=== PATIENT | female | born 1955 | race Caucasian/White ===

== ENCOUNTER 2025-01-31 07:54 | Outpatient (AMB) | payer MEDICARE, SELFPAY ==
--- OUTSIDE RECORDS SUMMARY | 2025-01-31 08:01 | XMS_ITS | Clinical Summary ---
Author Organization [address] [facility] Address [address] [place] [address] Phone Care Team Providers Care Ore Dressing Engineer Name Role Phone La Arreaga MD Primary Care Provider [phone] Allergies Active Allergy Reactions Criticality Noted Date Comments Aspirin 06/22/2022 Ibuprofen 06/22/2022 Levonorgestrel-Ethinyl Estrad 2021 Naproxen 06/22/2022 Medications aloe vera 5,000 mg capsule Take by mouth. Active vit B complx/folic acid/lysine (B COMPLEX VITAMINS PO) Take 5,000 Int'l Units by mouth. Active cetirizine (ZyrTEC) 10 mg tablet Take 1 tablet (10 mg total) by mouth 1 (one) time each day. Active ipratropium-albu teroL (Combivent Respimat) 20-100 mcg/actuation inhaler Inhale 1 Puff into the lungs 4 times daily for 30 days. 12/07/2023 Active levothyroxine (SYNTHROID, LEVOTHROID) 75 mcg tablet Take 1 tablet (75 mcg total) by mouth 1 (one) time each day. Active CHOLECALCIFEROL, VITAMIN D3, ORAL Take by mouth. Active ipratropium-albu teroL (Combivent Respimat) 20-100 mcg/actuation inhalerIndicatio ns:COPD with asthma (CMS/HCC V24, CMS/HCC V28) Inhale 1 puff by mouth 4 (four) times a day. 3 each 3 01/14/2025 Active Active Problems Problem Noted Date Diagnosed Date Anterolisthesis 06/14/2023 COPD (chronic obstructive pu lmonary disease) ([facility] V24, [facility] V28) 06/14/2023 Erythema migrans (Lyme disease) 06/14/2023 Hypothyroidism 06/14/2023 Lumbago 06/14/2023 Lumbar spondylosis 06/14/2023 Osteopenia 06/14/2023 Vitamin B12 deficiency 06/14/2023 Encounters Date Type Department Care Team Description 12/04/2024 11:30 AM EDT Office Visit Pulmonolgy - [address] [place] [address] Xochilt Duarte MD COPD with asthma ([facility] V24, [facility] V28) (Primary Dx); Bronchiectasis without complication ([facility] V24, [facility] V28); Ex-smoker; Lung nodules from Last 3 Months Social History Tobacco Use Types Packs/Day Years Used Date Smoking Tobacco: Former Cigarettes Q uit: 08/16/2010 Smokeless Tobacco: Never Alcohol Use Standard Drinks/Week Comments Not Currently 0 (1 standard drink = 0.6 oz pur e alcohol) Comments Unknown Sex and Gender Information Value Date Recorded Sex Assigned at Female 09/25/2024 12:26 PM EST Legal Sex Female 5:21 AM EST Gender Identity Female 09/25/2024 12:26 PM EST Sexual Orientation Not on file Obstetrics History Last Filed Vital Signs Vital Sign Reading Time Taken Comments Blood Pressure 122/69 12/04/2024 11:35 AM EDT Pulse 61 12/04/2024 11:35 AM EDT Temperature 35.7 C (96.3 F) 12/04/2024 11:35 AM EDT Respiratory Rate 16 12/04/2024 11:35 AM EDT Oxygen Saturation 96% 12/04/2024 11:35 AM EDT Inhaled Oxygen Concentration - - Weight 75.4 kg (166 lb 3.2 oz) 12/04/2024 11:35 AM EDT Height 162.6 cm (5' 4 ) 12/04/2024 11:35 AM EDT Body Mass Index 28.53 12/04/2024 11:35 AM EDT Plan of Treatment Upcoming Encounters Date Type Department Care Team (Late st Contact Info) Description 06/18/2025 9:45 AM EST Office Visit Pulmonolgy - [place] [facility] [address] [place] [id number] Xochilt Duarte MD [address] [id number] Health Maintenance Due Date Last Done Comments Breast Cancer Screening 1955 Colorectal Cancer Screening: Colonoscopy 07/19/2022 Depression Screening 07/19/2022 Falls Risk Assessment 07/19/2022 Hepatitis C Screening 07/19/2022 Medicare Annual Wellness Visit 07/19/2022 Osteoporosis Screening (Bone Density Screening) 07/19/2022 Social Influencers of Health Screening 07/19/2022 DTaP,Tdap,and Td Vaccines (2 - Td or Tdap) 02/28/2024 02/27/2014 COVID-19 Vaccine ( season) 2024 05/22/2024, 05/24/2023, 01/05/2022, Additional history exists Zoster Vaccines Completed 08/13/2020, 06/11/2020 Pneumococcal Vaccine: 50+ Years Completed 06/24/2021, 06/11/2020 RSV Immunization Adult Patients Completed 04/30/2023 Influenza Vaccine Completed 05/22/2024, , 06/29/2022, Additional history exists HIB Vaccines Aged Out No longer eligi ble based on patient's age to complete this topic HPV Vaccines Aged Out No longer eligi ble based on patient's age to complete this topic Hepatitis A Vaccines Aged Out No long er eligible based on patient's age to complete this topic Hepatitis B Vaccines Aged Out No long er eligible based on patient's age to complete this topic IPV Vaccines Aged Out No longer eligi ble based on patient's age to complete this topic MMR Vaccines Aged Out No longer eligi ble based on patient's age to complete this topic Meningococcal ACWY Vaccine Aged Out N o longer eligible based on patient's age to complete this topic Meningococcal B Vaccine Aged Out No l onger eligible based on patient's age to complete this topic RSV Immunization Patients Under 20 months Aged Out No longer eligible based on patient's age to complete this topic Varicella Vaccines Aged Out No longer eligible based on patient's age to complete this topic Insurance MEDICARE [facility] Care Teams Ore Dressing Engineer Relationship Specialty Start Date End Date La Arreaga MD [address] [facility] [place] [address] PCP - General 04/02/22
--- NOTE | 2025-01-31 08:08 | MHC.PC.OV ---
Vital Signs 01/31/25 08:10 Height 5 ft 4 in Weight 165 lb BMI 28.3 BP 106/74 Blood Pressure Location Lt brachial Position Sitting Respiration 18 Pulse 77 Pulse Source Pulse Oximeter Temp 97.5 F Temp Source Oral Pulse Oximetry (%) 95 Oxygen Delivery Method Room Air Intake Visit Reasons: Ear Problems Intake Note: Pt is here today for New pt visit. Allergies aspirin Allergy (Verified 01/31/25 08:15) Unknown ibuprofen Allergy (Verified 01/31/25 08:15) Unknown Milk Containing Products (Dairy) Allergy (Verified 01/31/25 08:16) Sneezing naproxen Allergy (Verified 01/31/25 08:15) yellow eyes skin turning blue Medication List - Last Reconciled 01/31/25 by Jacqui Mireles MD albuterol sulfate 90 mcg/actuation (Ventolin HFA) 2 puffs inhalation Q6H PRN aloe vera PO Bacillus coagulans (Probiotic (B. coagulans)) PO cetirizine (Zyrtec) 10 mg PO DAILY PRN cholecalciferol (vitamin D3) 25 mcg PO DAILY ipratropium-albuterol 20-100 mcg/actuation (Combivent Respimat) 1 puff inhalation TID levothyroxine (Levoxyl) 75 mcg PO DAILY montelukast 10 mg PO DAILY Tobacco use date assessed: 01/31/25 Fall risk assessment: No Falls in past year Last assessed Fall Risk: 01/31/25 Dental Screening Dental Screen Date: 01/31/25 Did you have a dental visit in the last 12 months?: Yes Did you have a dental problem in the last 6 months where you did not have access to dental care?: No Was dental information given to patient?: Patient has dentist HPI Ear Problems HPI Details Patient presents for new patient visit transfer from [facility]. Past medical history includes hypothyroidism controlled on levothyroxine COPD/asthma with seasonal allergies controlled on Combivent and montelukast. Patient is established with roof fitter at [facility] Medical History (Updated 01/31/25 @ 16:06 by Jacqui Mireles MD) Hypothyroidism Hyperglycemia Hyperlipidemia Varicose veins of left calf COPD (chronic obstructive pulmonary disease) Carotid artery aneurysm Surgical History (Updated 01/31/25 @ 10:21 by Jacqui Mireles MD) History of colonoscopy Hx of cataract surgery Family History (Updated 01/31/25 @ 08:37 by Jacqui Mireles MD) Father Hypertension Heart problem, Onset Age: 50 Mother Hypertension Diabetes Social History (Updated 01/31/25 @ 08:38 by Jacqui Mireles MD) Household Members Other:: , 3 children, artist Housing: House Patient Tobacco Use Status: Former Tobacco user (14-15 years ago) Tobacco use type: Cigarette e-Cigarette/Vaping Use: Never Used service: No Current occupational status: retired Cognitive needs: No Hearing needs: No Vision needs: No Questionnaire PHQ-9 Over the last 2 weeks, how often have you been bothered by any of the following problems? 1. Little interest or pleasure in doing things: not at all 2. Feeling down, depressed, or hopeless: not at all 3. Trouble falling or staying asleep, or sleeping too much: not at all 4. Feeling tired or having little energy: nearly every day 5. Poor appetite or overeating: not at all 6. Feeling bad about yourself - or that you are a failure or have let yourself or your family down: not at all 7. Trouble concentrating on things, such as reading the newspaper or watching television: not at all 8. Moving or speaking so slowly that other people could have noticed. Or the opposite - being so fidgety or restless that you have been moving around a lot more than usual: not at all 9. Thoughts that you would be better off or of hurting yourself in some way: not at all Total score: 3 Depression Screening Interpretation: Negative Depression Screening Done: Yes 03458 - PHQ-9 Billing: Yes Source: Developed by Drs. Marcelino Loyd, Sasha Rojas, Mukul Cordon and colleagues, with an educational mary from [employer]. Thrive Questionnaire Date Thrive assessed: 01/31/25 I am a: Patient What is your living situation today?: I have a steady place to live Within the past 12 months, did the food you bought not last and you didn't have the money to get more?: Often true Within the past 12 months, did you worry whether your food would run out before you got money to buy more?: I choose not to answer this question Do you have trouble paying for medicines?: I choose not to answer this question Do you have trouble getting transportation to medical appointments?: I choose not to answer this question Do you have trouble paying your heating and electricity bill?: I choose not to answer this question Do you have trouble taking care of your child, family member or friend?: No Do you have trouble with day-to-day activities such as bathing, preparing meals, shopping, managing finances, etc.?: No Are you currently unemployed and looking for a job?: No Are you interested in more education?: No Please select the resources that you would like help with: None THRIVE Score: 1 AUDIT C Alcohol Use Questionnaire (AUDIT-C) 1. How often do you have a drink containing alcohol?: Never 3. How often do you have six or more drinks on one occasion?: Never Total Score: 0 SILVESTRE-7 AMB Questionnaire SILVESTRE-7 Date SILVESTRE - 7 assessed: 01/31/25 Feeling nervous, anxious, or on edge: 0 = Not at all Not being able to stop or control worryin = Not at all Worrying too much about different things: 0 = Not at all Trouble relaxin = Not at all Being so restless that it is hard to sit still: 0 = Not at all Becoming easily annoyed or irritable: 0 = Not at all Feeling afraid as if something awful might happen: 0 = Not at all Total SILVESTRE-7 score (0-4 normal; 5-9 mild; 10-14 moderate; 15-21 severe): 0 Source: Developed by Drs. Marcelino Loyd, Sasha Rojas, Mukul Cordon and colleagues, with an educational mary from [employer]. SILVESTRE-7 Assessment Billing SILVESTRE-7 Assessment Tool: SILVESTRE-7 Assessment 23706 Review of Systems Const All systems reviewed & are unremarkable except as noted in HPI and below Eyes Reports no additional complaints ENT Reports no additional complaints Card Reports no additional complaints Resp Reports no additional complaints GI Reports no additional complaints Reports no additional complaints Physical exam (Primary Care) Vital Signs: Last Vital Signs Temp 97.5 F 01/31/25 08:10 Pulse 77 01/31/25 08:10 Resp 18 01/31/25 08:10 BP 106/74 01/31/25 08:10 Pulse Ox 95 01/31/25 08:10 Oxygen Delivery Method Room Air 01/31/25 08:10 BMI result Body Mass Index 28.3 Tobacco/Smoking Status: Tobacco use Status Tobacco use date assessed 01/31/25 01/31/25 08:24 Patient Tobacco Use Status Former Tobacco user (14-15 01/31/25 08:38 years ago) Tobacco use type Cigarette 01/31/25 08:38 e-Cigarette/Vaping Use Never Used 01/31/25 08:38 PHQ-9: PHQ-9 Score PHQ-9: Total score 3 01/31/25 08:39 Depression Screening Interpretation: Negative Thrive Assessment: Date of Thrive Assessment Date Thrive assessed 01/31/25 01/31/25 08:09 Const General: no acute distress HENMT Head: Yes normal to inspection Ears: hearing grossly normal bilaterally Face and sinus: Yes normal facial exam Mouth: Normal oral and palatal mucosa present Eyes General: appearance normal, both eyes and all related structures Neck Neck: Yes no lymphadenopathy and Yes supple Resp Effort & Inspection: normal respiratory effort Auscultation: clear to auscultation bilaterally Cardio Rhythm: regular rhythm Heart sounds: S1 normal heart sound present and S2 normal heart sound present GI Inspection: Yes normal to inspection Palpation (GI): Soft to palpation Percussion: Yes normal to percussion Auscultation: normal bowel sounds Coding Level of Care Code New Pt Level 4 (90133) Complex EM visit Add On G2211 Diagnoses Carotid artery aneurysm I72.0 Hyperlipidemia E78.5 History of colonoscopy Z98.890 Hypothyroidism E03.9 Varicose veins of left calf I83.92 Additional Codes SILVESTRE-7 Assessment Billing - SILVESTRE-7 Assessment Tool: SILVESTRE-7 Assessment 32280 ([id number]) PHQ-9 - 07652 - PHQ-9 Billing: Yes ([id number]) Assessment & Plan Assessment & Plan (1) Carotid artery aneurysm: Comment: seen by [facility] and [place] evaluation f/u annually in fall 2024 Code(s): I72.0 - Aneurysm of carotid artery Category: Medical Plan: Patient follows up with the vascular surgeon at [facility] (2) Hyperlipidemia: Code(s): E78.5 - Hyperlipidemia, unspecified Category: Medical Plan: On low-cholesterol diet we will have a fasting lipid profile (3) History of colonoscopy: Comment: 2017? [facility], patient will get a report Code(s): Z98.890 - Other specified postprocedural states Category: Surgical Plan: Patient will be due for colonoscopy next year she will obtain the records from [facility] (4) Hypothyroidism: Code(s): E03.9 - Hypothyroidism, unspecified Category: Medical Plan: Continue levothyroxine check TSH to (5) Varicose veins of left calf: Code(s): I83.92 - Asymptomatic varicose veins of left lower extremity Category: Medical Plan: For painful varicose veins on the left calf, patient will be referred to vascular surgeon Orders: Orders Comprehensive [place]. Panel Fast Today R73.9 - Hyperglycemia, unspecified, Z00.00 - Encounter for general adult medical examination without abnormal findings Hemoglobin A1c Today R73.9 - Hyperglycemia, unspecified, Z00.00 - Encounter for general adult medical examination without abnormal findings Lipid Panel Today R73.9 - Hyperglycemia, unspecified, Z00.00 - Encounter for general adult medical examination without abnormal findings Microalbumin, Random (w Creat) Today R73.9 - Hyperglycemia, unspecified, Z00.00 - Encounter for general adult medical examination without abnormal findings XR sacroiliac joint min 3V Today M53.3 - Sacrococcygeal disorders, not elsewhere classified Complete Blood Count Auto Diff Today R73.9 - Hyperglycemia, unspecified, Z00.00 - Encounter for general adult medical examination without abnormal findings TSH reflex Free T4 Today R73.9 - Hyperglycemia, unspecified, Z00.00 - Encounter for general adult medical examination without abnormal findings Vitamin D 25-OH Total Today E55.9 - Vitamin D deficiency, unspecified, R73.9 - Hyperglycemia, unspecified, Z00.00 - Encounter for general adult medical examination without abnormal findings Referrals Vascular Surgery Referral I83.92 - Asymptomatic varicose veins of left lower extremity Medications: New levothyroxine (Levoxyl) 75 mcg PO DAILY 90 tabs 3RF montelukast 10 mg PO DAILY 90 tabs 3RF ipratropium-albuterol 20-100 mcg/actuation (Combivent Respimat) 1 puff inhalation TID 12 grams 3RF
[2025-01-31 08:10] VITALS: BP 106/74; PULSE 77; RESP 18; TEMP 36.4; O2SAT 95; BMI 28.3
== END 2025-01-31 08:57 | disposition home or self-care (01) ==
LOC: HO.HMCC 07:54
PROVIDERS: PCP Internal Medicine; Visit Provider Internal Medicine
DX: I72.0 Aneurysm of carotid artery (principal); E78.5 Hyperlipidemia, unspecified; Z98.890 Other specified postprocedural states; E03.9 Hypothyroidism, unspecified; I83.92 Asymptomatic varicose veins of left lower extremity

== ENCOUNTER 2025-01-31 07:54 | Outpatient (REF) | payer MEDICARE, SELFPAY ==
[2025-01-31 10:22] LABS: MANUAL DIFF FLAG NO
[2025-01-31 10:23] LABS: Basophils Absolute Auto 0.1 X10*3/uL (0.0-0.2); Basophils Percent Auto 0.8 % (0-2); Eosinophils Absolute Auto 0.1 X10*3/uL (0.0-0.4); Hematocrit 43.2 % (37.0-47.0); Hemoglobin 14.2 g/dl (12.0-16.0); Imm Gran Abs Auto 0.02 X10*3/uL (0.00-0.03); Imm Gran Pct Auto 0.3 % (0.0-0.4); Lymphocytes Absolute Auto 2.3 X10*3/uL (1.2-4.9); Lymphocytes Percent Auto 35.1 % (20-40); Mean Corpuscular HGB Conc 32.9 g/dl (31.0-35.0); Mean Corpuscular Hemoglobin 29.5 pg (27.0-33.0); Mean Corpuscular Volume 89.8 fL (80.0-98.0); Mean Platelet Volume 11.6 fL (9.4-12.3); Monocytes Absolute Auto 0.5 X10*3/uL (0.1-1.2); Neutrophils Absolute Auto 3.5 x10*3/uL (2.0-8.3); Neutrophils Percent Auto 53.8 % (45-73); Platelet Count 210 X10*3/uL (160-400); Red Blood Count 4.81 X10*6/uL (4.20-5.50); White Blood Count 6.5 X10*3/uL (4.8-10.8)
[2025-01-31 10:39] LABS: Estimated Average Glucose 117 mg/dL; Hemoglobin A1C 142.8777 umol/L; Hemoglobin A1c % 5.7 % (<6.0)
[2025-01-31 10:49] LABS: Creatinine Urine 131.11 mg/dL; Microalbum/Creatinine Ratio Ur 5.3 ug/mg cr (<30)
[2025-01-31 10:52] LABS: Alanine Aminotransferase 18 U/L (0-31); Albumin Level 4.5 g/dL (3.5-5.0); Alkaline Phosphatase 98 U/L (39-117); Anion Gap 12 (12-20); Aspartate Amino Transferase 25 U/L (5-31); Bilirubin Total 1.1 mg/dL (0.0-1.0); Blood Urea Nitrogen 17 mg/dL (9-16); Calcium 9.5 mg/dL (8.4-10.2); Carbon Dioxide 25 mmol/L (22-29); Chloride 107 mmol/L (96-108); Cholesterol 217 mg/dL (<200); Estimated Glomerular Filt Rate > 60; Glucose Fasting 87 mg/dL (60-99); HDL Cholesterol 72 mg/dL (>40); LDL Cholesterol Calculated 125 mg/dL (<100); Potassium 4.1 mmol/L (3.3-5.1); Sodium 140 mmol/L (135-145); Total Protein 7.4 g/dL (6.5-8.0); Triglycerides 103 mg/dL (<150)
[2025-01-31 11:04] LABS: TSH reflex Free T4 3.61 uIU/mL (0.32-4.0); Vitamin D 25-OH Total 44.3 ng/mL (>30)
== END 2025-01-31 07:55 | disposition home or self-care (01) ==
LOC: HO.HMGCLDS 07:54
PROVIDERS: PCP Internal Medicine; Visit Provider Internal Medicine
DX: I72.0 Aneurysm of carotid artery (principal); E78.5 Hyperlipidemia, unspecified; E03.9 Hypothyroidism, unspecified; I83.92 Asymptomatic varicose veins of left lower extremity; R73.9 Hyperglycemia, unspecified; Z79.899 Other long term (current) drug therapy; Z13.30 Encounter for screening examination for mental health and behavioral disorders, unspecified; Z13.31 Encounter for screening for depression; Z00.00 Encounter for general adult medical examination without abnormal findings; E55.9 Vitamin D deficiency, unspecified
CPT/HCPCS: 36415; 80053; 80061; 82043; 82306; 82570; 83036; 84443; 85025; 96127; 99202

== ENCOUNTER 2025-02-06 10:32 | Outpatient (AMB) | payer MEDICARE, SELFPAY ==
[2025-02-06 10:40] VITALS: BMI 28.3
--- NOTE | 2025-02-06 10:40 | MHC.OFFVIS ---
Vital Signs 02/06/25 10:40 Height 5 ft 4 in Weight 165 lb BMI 28.3 Intake Visit Reasons: MANAGER OFFICE/PCP referral for VV of LLE Intake Note: MANAGER OFFICE Left LE VV w/ pain worse with ambulation. Has had for many years but is getting worse. Data Reporting Analyst Required: No Accompanied by: Self / Same As Patient Allergies aspirin Allergy (Verified 02/06/25 10:42) Unknown ibuprofen Allergy (Verified 02/06/25 10:42) Unknown Milk Containing Products (Dairy) Allergy (Verified 02/06/25 10:42) Sneezing naproxen Allergy (Verified 02/06/25 10:42) yellow eyes skin turning blue HPI HPI MANAGER OFFICE/PCP referral for VV of LLE: Details: Samreen, a very pleasant 69yo female patient, is presenting today on referral from her PCP for concerns of VV with pain and inflammation. Complaints include pain over varicosities, slight swelling, and fatigue of the lower extremities. It has been affecting their daily activities including walking, standing, and physical activity. It is noted more so in the left leg. She states she has had the varicosities behind her left knee for years now; however, most recently it has been more painful/achy and causing increased pain on walks. She is not a diabetic. She has a remote smoking hx, quitting >15y ago. There is no hx of blood clots or family hx of clotting disorders. She is retired now but did work on her feet for many years; she did wear compression socks while working. Patient denies any previous venous surgery or injections. Patient denies any history of DVT/ PE. Patient denies any history of phlebitis. Trial of compression includes - compression socks in the past. Elevation is questionable if it helps They now present for vascular evaluation regarding their varicose veins. [facility] Medical History Hypothyroidism Hyperglycemia Hyperlipidemia Varicose veins of left calf COPD (chronic obstructive pulmonary disease) Carotid artery aneurysm Surgical History History of colonoscopy Hx of cataract surgery Family History Father Hypertension Heart problem, Onset Age: 50 Mother Hypertension Diabetes Social History Household Members Other:: , 3 children, artist Housing: House Patient Tobacco Use Status: Former Tobacco user (14-15 years ago) Tobacco use type: Cigarette e-Cigarette/Vaping Use: Never Used service: No Current occupational status: retired Cognitive needs: No Hearing needs: No Vision needs: No Review of Systems Const Reports as per HPI and Denies weakness ENT Reports Normal hearing present and Denies dizziness Card Reports as per HPI, Denies chest pain, Denies chest pain at rest, Denies chest pain with activity, Denies dyspnea and Denies dyspnea on exertion Resp Reports as per HPI, Denies cough, Denies dyspnea and Denies dyspnea on exertion GI Reports as per HPI, Denies abdominal pain, Denies nausea and Denies vomiting Musc Denies numbness Skin/Breast Reports as per HPI, Denies erythema and Denies wounds Neuro Reports Normal hearing present, Denies dizziness, Denies numbness, Denies Sensory deficit (Neuro) and Denies weakness Psych Reports no additional complaints Endo Reports no additional complaints Physical Exam Vital Signs: BMI result Body Mass Index 28.3 Const General: healthy appearing and no acute distress Orientation/consciousness: patient oriented x3 HEENT Head: Yes normal to inspection Ears: hearing grossly normal bilaterally Mouth: Normal oral and palatal mucosa present Resp Effort & Inspection: normal respiratory effort and able to speak in complete sentences Auscultation: clear to auscultation bilaterally Cardio Jugular venous distension: no JVD Rate: regular rate Rhythm: regular rhythm Heart sounds: S1 normal heart sound present and S2 normal heart sound present Bruits: no abdominal aortic bruits, no carotid bruits, no femoral bruits and no renal bruits Peripheral pulses: Peripheral pulses 2+ throughout GI Inspection: Yes normal to inspection Palpation (GI): No Abdominal aortic bruit present Skin General skin exam: no rashes or lesions noted Wounds: no wounds Hair: normal Neuro General: patient oriented x3 Cranial nerves: Yes Normal hearing present Cognition (Neuro): normal cognition Gait exam (Neuro): Normal gait present Motor exam (neuro): 5/5 motor strength present throughout Sensory Exam: No Sensory deficit (Neuro) Extrem Other: Left lower extremity: trace peripheral edema noted. Significant large rope-like varicosity, >5cm noted from the posterior mid-thigh down the back of the knee, ending at the posterior mid-calf. Not tender to palpation. CEAP: C - 3 E - primary A - superficial P - reflux General: Yes normal to inspection, Yes full ROM, Yes capillary refill normal and Yes normal gait Assessment & Plan Assessment & Plan (1) Varicose veins of left calf: Code(s): I83.92 - Asymptomatic varicose veins of left lower extremity Category: Medical Plan: Samreen is presenting today on referral from her PCP for concerns of VV with pain and inflammation. In short, the patient has evidence of venous insufficiency. I have discussed the pathophysiology with the patient. In addition I have provided informational material regarding venous disease to the patient. We have discussed conservative measures including compression, elevation, and exercise. I have also provided a handout regarding appropriate use of compression stockings and where to purchase good compression stockings as well. I have taken the liberty of ordering venous insufficiency testing with the patient. They will follow up with me after testing. The patient had an opportunity to ask questions regarding the treatment plan. All questions were answered. Imaging studies, laboratory studies and physical exam results were discussed and reviewed in detail. No major barriers to understanding were identified. The patient expressed understanding and agreement with the above treatment plan. The patient is aware they should contact our office by phone for worsening of the current condition or the appearance of new symptoms. Thank you for allowing me to participate in the vascular care of this patient. If you have any questions or concerns regarding the treatment for the above condition please do not hesitate to contact me. The office telephone contact is [phone]. This note is constructed using voice recognition software. While every effort has been made to ensure accuracy, official court interpreter errors may have been included. Thank you for allowing me to participate in the care of your patient. Yours sincerely, JAYSON Cross Orders: Orders US venous duplex LE BI 1 Week I83.92 - Asymptomatic varicose veins of left lower extremity Coding Level of Care Code New Pt Level 4 (56706) Diagnoses Varicose veins of left calf I83.92
--- OUTSIDE RECORDS SUMMARY | 2025-02-06 11:49 | XMS_ITS | Clinical Summary ---
Author Organization 175 [facility] Address [address] [place] [address] Phone Care Team Providers Care Hyperion Developer Name Role Phone La Arreaga MD Primary Care Provider [phone] Allergies Active Allergy Reactions Criticality Noted Date [...] 06/14/2023 COPD (chronic obstructive pu lmonary disease) ([facility] V24, [facility] V28) 06/14/2023 Erythema migrans (Lyme disease) 06/14/2023 Hypothyroidism 06/14/2023 Lumbago 06/14/2023 Lumbar spondylosis 06/14/2023 Osteopenia 06/14/2023 Vitamin B12 deficiency 06/14/2023 Encounters Date Type Department Care Team Description 12/04/2024 11:30 AM EDT Office Visit Pulmonolgy - [address] [place] [address] Xochilt Duarte MD COPD with asthma ([facility] V24, [facility] V28) (Primary Dx); Bronchiectasis without complication ([facility] V24, [facility] V28); Ex-smoker; Lung nodules from Last 3 [...] 9:45 AM EST Office Visit Pulmonolgy - [place] 175 [facility] [address] [place] [phone] Xochilt Duarte MD [address] [address] Health Maintenance Due Date Last Done Comments [...] age to complete this topic Insurance MEDICARE [facility] Care Teams Hyperion Developer Relationship Specialty Start Date End Date La Arreaga MD [address] [facility], [address] [place] [address] PCP - General 04/02/22
== END 2025-02-06 10:59 | disposition home or self-care (01) ==
LOC: HO.HVS 10:33
PROVIDERS: PCP Internal Medicine; Visit Provider Physician Assistant Surgical
DX: I83.92 Asymptomatic varicose veins of left lower extremity (principal)
CPT/HCPCS: 99204

== ENCOUNTER → 2025-02-06 10:32 | Outpatient (BNVA) | payer MEDICARE, SELFPAY | PROVIDERS: PCP Internal Medicine; Visit Provider Physician Assistant Surgical | DX: I83.92 Asymptomatic varicose veins of left lower extremity (principal) | CPT/HCPCS: 99202 ==

== ENCOUNTER 2025-03-05 10:20 | Outpatient (REF) | payer MEDICARE, SELFPAY ==
--- NOTE | ~2025-03-05 | US_ITS ---
EXAMINATION: US LOWER EXTREMITY VENOUS (REFLUX EXAM), BILATERAL CLINICAL INFORMATION: I83.92 - Asymptomatic varicose veins of left lower extremity COMPARISON: None. TECHNIQUE: Color flow triplex imaging and compression Doppler was performed to evaluate both the deep and the superficial systems bilaterally. To evaluate the superficial system, the examination was performed in the upright position. Color-flow Doppler ultrasound and compression ultrasound were utilized. In addition, maneuvers were utilized to demonstrate reflux. FINDINGS: 1. DEEP VENOUS ULTRASOUND OF THE RIGHT LOWER EXTREMITY: Common Femoral Vein: Compressible, normal respiratory variation and augmented flow. Femoral Vein: Compressible, normal color flow and augmentation. Popliteal Vein: Compressible, normal augmentation. Deep Reflux: There is no evidence of reflux in the deep system in either the common femoral vein, superficial femoral or the popliteal vein. 2. SUPERFICIAL ULTRASOUND WITH DOPPLER OF RIGHT LOWER EXTREMITY: GREAT SAPHENOUS VEIN: Saphenofemoral Junction: 0.5 cm; Reflux: 0 ms Proximal Thigh: 0.3 cm; Reflux: 0 ms Mid Thigh: 0.4 cm; Reflux: 0 ms Distal Thigh: 0.3 cm; Reflux: 0 ms At Knee: 0.3 cm; Reflux: 0 ms Below Knee/Proximal Calf: 0.1 cm; Reflux: 0 ms Mid Calf: 0.2 cm; Reflux: 0 ms Ankle/Distal Calf: 0.3 cm; Reflux: 0 ms Lateral accessory GREAT SAPHENOUS VEIN: Saphenofemoral Junction: 0.3 cm; Reflux: 0 ms Mid Thigh: 0.2 cm; Reflux: 0 ms SMALL SAPHENOUS VEIN: Drainage: Thigh extension Saphenopopliteal Junction: 0.2 cm; Reflux: 0 ms Mid calf: 0.2 cm; Reflux: 0 ms Distal: 0.2 cm; Reflux: 0 ms VEIN OF GIACOMINI: Size: 0.2 cm Reflux: 0 ms PERFORATORS: Location: Greater saphenous vein, proximal calf Size: 0.2 cm Reflux: 0 ms VARICOSITIES > 3mm: None Imaged 3. DEEP VENOUS ULTRASOUND OF THE LEFT LOWER EXTREMITY: Anechoic fluid in the popliteal fossa measuring 5 x 1.6 x 2 cm likely represents a Burk's cyst. Common Femoral Vein: Compressible, normal respiratory variation and augmented flow. Femoral Vein: Compressible, normal color flow and augmentation. Popliteal Vein: Compressible, normal augmentation. Deep Reflux: There is no evidence of reflux in the deep system in either the common femoral vein, superficial femoral or the popliteal vein. 4. SUPERFICIAL ULTRASOUND WITH DOPPLER OF LEFT LOWER EXTREMITY: GREAT SAPHENOUS VEIN: Saphenofemoral Junction: 0.6 cm; Reflux: 0 ms Proximal Thigh: 0.5 cm; Reflux: 0 ms Mid Thigh: 0.3 cm; Reflux: 0 ms Distal Thigh: 0.4 cm; Reflux: 0 ms At Knee: 0.4 cm; Reflux: 0 ms Below Knee/Proximl calf: 0.2 cm; Reflux: 0 ms Mid Calf: 0.2 cm; Reflux: 0 ms Distal Calf/Ankle: 0.2 cm; Reflux: 0 ms Lateral accessory GREAT SAPHENOUS VEIN: Saphenofemoral Junction: 0.2 cm; Reflux: 0 ms Mid Thigh: 0.2 cm; Reflux: 0 ms SMALL SAPHENOUS VEIN: Drainage: Popliteal vein Saphenopopliteal Junction: 2 cm; Reflux: 0 ms Mid calf: 0.2 cm; Reflux: 0 ms Distal calf: 0.1 cm; Reflux: 0 ms VEIN OF GIACOMINI: Size: 0.2 Reflux: 0 PERFORATORS: Location: Greater saphenous vein, distal thigh Size: 0.3 cm Reflux: 0 ms Location: Greater saphenous vein, proximal calf Size: 0.2 cm Reflux: 0 ms Location: Greater saphenous vein to a small varicose vein, mid calf Size: 0.2 cm Reflux: 0 ms VARICOSITIES > 3mm: None Imaged US/US venous duplex LE BI IMPRESSION: Right: No venous reflux is demonstrated. Left: No venous reflux is demonstrated. Small to midsized Burk's cyst Electronically signed by: Jaya Dukes MD 03/05/2025 01:17 PM EDT
--- OUTSIDE RECORDS SUMMARY | 2025-03-05 11:18 | XMS_ITS | Patient Health Record ---
Author Organization [facility] Address [address] [facility] [address] [place] [id number] Care Team Providers Care Transformer Assembler Name Role Phone Sandro Graves Primary Care Provider UnavailMiguel Angel Gagnon Jr Unavailable Reason For Referral No Information Plan Of Treatment No Information Insurance Providers Payer Name Payer Address Payer Phone Subscriber Number Group Number Insured Name Patient Relationship to Insured Coverage Start Date Coverage End Date [facility] PROF[employer]AL CLAIM[facility] [address] [place] [address] [id number] BONNY LANGE Self - patient is the insured
--- OUTSIDE RECORDS SUMMARY | 2025-03-05 11:18 | XMS_ITS | Data Portability ---
Author Organization [facility], CHANO Kiko Address [address] [place] [address] Assessment Encounter Date Assessment Date Assessment LastModified by Organization Details LastModified Time 01/09/2025 01/09/2025 ICD-10: Left valgus fourth crossover toe, fourth metatarsalgia, chronic fifth PIP lateral dislocation CHIEF COMPLAINT: Left foot pain HISTORY OF PRESENT ILLNESS: Samreen is a very pleasant 69-year-old woman here today with an adult male who is seen as a new patient with regard to chronic left forefoot pain. She suffered a left fifth toe lateral PIP dislocation in March 2024 and was treated with esdras taping. She later had an MRI to evaluate her carotid arteries and an aneurysm. During the MRI, unbeknownst to the radiology seen, she had a metal bar between her third and fourth toes that were helping to hold her toe straight and this aggravated her left forefoot during the MRI. She now has pain about the left fourth MTP joint and has noted valgus drift of the fourth toe. She has tried supportive shoes and inserts. She is here today to discuss surgical treatment. She is also having some pain about her left knee. Past family, medical, social history and review of systems has been reviewed, updated and is located in the patient s chart. She is a nonsmoker. She does not work. PHYSICAL EXAM: General: healthy appearing, in no acute distress Psych: alert and oriented x3, normal mood Skin: intact without ulceration or lesion, normal turgor Lungs: respirations unlabored Cardiac: heart rate regular, normal peripheral pulses Musculoskeletal: On standing exam, there is valgus deviation of her left fourth toe at the MTP joint as well as deformity about the left fifth PIP joint. Skin is intact. She is tender about the left fourth MTP and left fifth PIP joints. She is distally neurovascularly intact. X-RAYS: Previous x-ray images through [facility] from March 2024 independent reviewed, demonstrating valgus deviation about the left fourth MTP joint and left lateral fifth PIP dislocation. IMPRESSION: Left valgus fourth crossover toe, fourth metatarsalgia, chronic fifth PIP lateral dislocation PLAN: I discussed these findings with Samreen. She has been struggling since her injury in March and this seems to have been exacerbated by her MRI. We agree to proceed with surgery in the fall, consisting of left fourth MTP angular correction/pinning , fourth Tory osteotomy, fifth PIP arthrodesis. She will be heel weightbearing in a postop shoe following surgery. Her K wires will remain in place for 5-6 weeks. All questions were answered. Risks include, but are not limited to, wound healing problems, deep infection, nerve/vessel injury, nonunion, malunion, symptomatic hardware, persistent pain, need for further surgery. The expected postoperative course was outlined in detail. The patient understands the nature and magnitude of this surgery and wishes to proceed. All questions were answered. [email or web address] Not available 01/09/2025 15:04:19 Plan of Treatment Reminders Order Date Submit Date Provider Last Modified By Organization Details Last Modified Time Details Appointments SURGERY @ [facility] 2024 08:45A M Jim Mcdonald MD Not available Not available Not available POST OP 15 2024 01:30P M Carmen Schneider PA-C Not available Not available Not available POST OP 15 2024 03:30P M Jim Mcdonald MD Not available Not available Not available Lab None recorded . Referral None recorded . Procedures None recorded . Surgeries orthopae dic surgery (SURG) 2024 025 timmy [address], [address], [facility], [place], [address], 03/05/2025 10:20:53 Imaging None recorded . Medication Orders None recorded . Patient TargetsNo targets recorded. Patient InstructionsNo instructions recorded. Reason for Referral None Reported. Problems Name Problem SNOMED Code Status Onset Date Resolution Date Notes Provider Name and Address Organization Details Recorded Time Overriding toes [id number] Active 025 Jim Mcdonald MD [address], [place], [address] [place] [address] - [facility] 15:04:36 Problem Notes None recorded. Medical Equipment None Reported. Medications Name Sig Start Date Stop Date Status Note LastModified by Organization Details LastModified Time ofloxacin 0.3 % eye drops INSTILL 1 DROP IN RIGHT EYE FOUR TIMES A DAY TO BEGIN 6 HOURS AFTER SURGERY AND CONTINUE FOR 7 DAYS active Not Available Not Available No t Available meclizine 12.5 mg tablet TAKE 1 TABLET BY MOUTH THREE TIMES A DAY active Not Available Not Available No t Available levothyroxine 75 mcg tablet TAKE 1 TABLET BY MOUTH EVERY DAY active Not Available Not Available No t Available ketorolac 0.5 % eye drops INSTILL 1 DROP IN RIGHT EYE FOUR TIMES A DAY TO BEGIN 6 HOURS AFTER SURGERY AND CONTINUE UNTIL EMPTY active Not Available Not Available No t Available prednisolone acetate 1 % eye drops,suspensi on INSTILL 1 DROP IN RIGHT EYE FOUR TIMES A DAY 6 HOURS AFTER SURGERY UNTIL FINISHED active Not Available Not Available No t Available omeprazole 20 mg capsule,delaye d release TAKE 1 CAPSULE BY MOUTH EVERY DAY active Not Available Not Available No t Available montelukast 10 mg tablet TAKE 1 TABLET BY MOUTH EVERY EVENING active Not Available Not Available No t Available albuterol sulfate HFA 90 mcg/actuation aerosol inhaler INHALE 2 PUFFS EVERY 6 HOURS NEEDED FOR WHEEZING active Not Available Not Available No t Available Combivent Respimat 20 mcg-100 mcg/actuation solution for inhalation INHALE 1 PUFF INTO THE LUNGS 4 TIMES DAILY. 3 INHALERS AND 3 REFILLS active Not Available Not Available No t Available Vitals None Recorded Social History None recorded. Functional Status None recorded. Mental Status None recorded. Family History Nothing Reported. Medical History No medical history recorded. Gynecological HistoryNo gynecological history recorded. Obstetrics History GPAL:G 0 P 0 0 0 0 Past Encounters Encounter ID Performer Location Encounter Start Date Encounter Closed Date Diagnosis/Indication Diagnosis SNOMED-CT Code Diagnosis ICD10 Code Diagnosis Note [id number] MD [facility] [place] [address] [place] [address] 01/09/2025 14:35:03 01/16/2025 13:15:21 Hammer toe 334972125 M20.42 Metatarsal eddy of left foot 8522737413 83623 M77.42 Overriding toes 86907567 3 M20.5X2 Health Concerns Section Related Observation LastModified by Organization Detai ls LastModified Time None Recorded Concern Status LastModified by Organization Details LastModified Time None Recorded Advance Directives Directive None Recorded Payers Insurance Date Sequence Insurance Name Policy Number Policy Hopson Covered Member ID Hopson Member ID Guarantor Name 01/16/2025 2 [place] [id number] Samreen Ruiz [id number] Samreen Ruiz 01/19/2025 [employer] - SPECIALITY CLAIMS (MEDICARE DME REGION A) Samreen Ruiz [id number] Samreen Ruiz 01/09/2025 1 [place] Samreen Ruiz [id number] Samreen Ruiz OBGyn Episode No OBEpisode recorded.
--- OUTSIDE RECORDS SUMMARY | 2025-03-05 11:18 | XMS_ITS | Clinical Summary ---
Author Organization [facility] Address [address] [place] [address] Care Team Providers Care Affirmative Action Specialist Name Role Phone La Arreaga Primary Care Provider [phone] Allergies Active Allergy Reactions Criticality Noted Date Comments Ibuprofen Other (see comments) 04/12/2024 unknown Naproxen Jaundice High 04/12/2024 Medications levothyroxine (SYNTHROID, LEVOTHROID) 75 mcg tablet Take 75 mcg by mouth daily. Active montelukast (SINGULAIR) 10 mg tablet Take 10 mg by mouth nightly. Active Active Problems Problem Noted Date Diagnosed Date Tick bite 01/14/2015 Erythema migrans (Lyme disease) 01/14/2015 Hypothyroidism 07/30/2014 Low vitamin B12 level 05/30/2014 Cramps, muscle, general 05/02/2014 Lumbar spondylosis 03/13/2014 Anterolisthesis 03/13/2014 Abnormal thyroid function test 03/07/2014 Allergic rhinitis 11/29/2013 Varicose veins of leg with pain 10/01/2012 Lumbago 10/01/2012 Immunizations Immunization Administration Dates Next Due Tetanus Toxoid, Reduced Diph theria Toxoid, and Acellular Pertussis Vaccine, Adsorbed 02/27/2014 Family History Medical History Relation Name Comments Other Father Family history of No pertinent family history Other Mother Family history of No pertinent family history Other Other Sibling Family History of amyotrophic lateral sclerosis Relation Name Status Comments Father Mother Other Social History Tobacco Use Types Packs/Day Years Used Date Smoking Tobacco: Former Comments:: Comments Unknown Sex and Gender Information Value Date Recorded Sex Assigned at Female 04/07/2024 9:09 AM EDT Legal Sex Female 12:13 AM EDT Gender Identity Not on file Sexual Orientation Not on file Last Filed Vital Signs Vital Sign Reading Time Taken Comments Blood Pressure 116/66 04/12/2024 2:00 PM EDT Pulse 66 04/12/2024 2:00 PM EDT Temperature 36.3 C (97.4 F) 12/24/2014 9:02 AM EDT Respiratory Rate 18 04/12/2024 1:00 PM EDT Oxygen Saturation 94% 04/12/2024 2:00 PM EDT Inhaled Oxygen Concentration - - Weight 81.6 kg (180 lb) 04/12/2024 7:52 AM EDT Height 162.6 cm (5' 4 ) 04/12/2024 7:52 AM EDT Body Mass Index 30.9 04/12/2024 7:52 AM EDT Plan of Treatment Health Maintenance Due Date Last Done Comments Cologuard 1955 Colonoscopy 1955 Hepatitis C Screening 1955 Sigmoidoscopy 1955 Medicare AWV 11/05/[address] Lung Cancer Screening (Baseline) 2004 Osteoporosis Screening 2004 Colon Cancer Screening 10/11/2013 FOBT / Fit Test 10/11/2013 10/11/2012 DTaP,Tdap,and Td Vaccines (2 - Td or Tdap) 02/28/2024 02/27/2014 COVID-19 Vaccine ( season) 2024 05/24/2023, 01/05/2022, 06/10/2021, Additional history exists Alcohol/Substance Use Screening 08/16/2024 Depression Screening and Follow-Up 08/16/2024 Health Care Proxy Review 08/16/2024 Social Drivers of Health Annual Screening 08/16/2024 Influenza Vaccine (#1) 2025 , 06/29/2022, 06/10/2021, Additional history exists Zoster Vaccines Completed 08/13/2020, 06/11/2020 Pneumococcal Vaccine: 50+ Years Completed 06/24/2021, 06/11/2020 RSV Vaccine (60+ years old and patients) Completed 04/30/2023 Hepatitis B Vaccines Aged Out No long er eligible based on patient's age to complete this topic Medical Devices Implanted Type Area Paperboard Box Maker Device Identifier Shelf Expiration Date Model / Serial / Lot Device Closure Vascular Plug 8fr Angio-Seal Vip - [id number] Implanted:Qty: 1 on 04/12/2024 at [facility] [employer] 12/05/2024 [id number] / / Procedures * Due to [place] [employer] law, this organization might not be sharing negative HIV tests. Procedure Name Priority Date/Time Associated Diagnosis Comments OCCULT BLOOD, FECAL (FIT), OUTSIDE LAB Routine 10/11/2012 12:00 AM EST from Last 3 Months or Most Recently Relevant to Health Maintenance Results * Due to [place] [employer] law, this organization might not be sharing negative HIV tests. * Occult Blood, Fecal (FIT), Outside Lab (10/11/2012 12:00 AM EST) Occult Blood, Stool #1 negative [facility] 10/11/2012 us Historical Conversion Provider LAB BODY FLUIDS A ND STOOLS ORDERABLES Final Result Performing Organization Address City/State/[facility] Co de Phone Number [facility] from Last 3 Months or Most Recently Relevant to Health Maintenance Insurance MEDICARE [facility] Care Teams Affirmative Action Specialist Relationship Specialty Start Date End Date La Arreaga [address] [place] [address] PCP - General Family Medicine 04/07/24
--- OUTSIDE RECORDS SUMMARY | 2025-03-05 11:18 | XMS_ITS | Clinical Summary ---
Author Organization 175 [facility] Address [address] [place] [address] Phone Care Team Providers Care Bookkeeping Manager Name Role Phone La Arreaga MD Primary Care Provider [phone] Allergies Active Allergy Reactions Criticality Noted Date [...] 06/14/2023 COPD (chronic obstructive pu lmonary disease) ([facility] V24, [facility] V28) 06/14/2023 Erythema migrans (Lyme disease) 06/14/2023 Hypothyroidism 06/14/2023 Lumbago 06/14/2023 Lumbar spondylosis 06/14/2023 Osteopenia 06/14/2023 Vitamin B12 deficiency 06/14/2023 Encounters Date Type Department Care Team Description 12/04/2024 11:30 AM EDT Office Visit Pulmonolgy - [address] [place] [address] Xochilt Duarte MD COPD with asthma ([facility] V24, [facility] V28) (Primary Dx); Bronchiectasis without complication ([facility] V24, [facility] V28); Ex-smoker; Lung nodules from Last 3 [...] 9:45 AM EST Office Visit Pulmonolgy - [place] 175 [facility] [address] [place] [phone] Xochilt Duarte MD [address] [address] Health Maintenance Due Date Last Done Comments Breast Cancer Screening 1955 Colorectal Cancer Screening: Colonoscopy 07/19/2022 Falls Risk Assessment 07/19/2022 Hepatitis C Screening 07/19/2022 Medicare Annual Wellness Visit 07/19/2022 Osteoporosis Screening (Bone Density Screening) 07/19/2022 Social Influencers of Health Screening 07/19/2022 DTaP,Tdap,and Td Vaccines (2 - Td or Tdap) 02/28/2024 02/27/2014 Depression Screening 08/16/2024 COVID-19 Vaccine ( season) 2024 05/22/2024, 05/24/2023, 01/05/2022, Additional history exists Influenza Vaccine (#1) 2025 , 05/24/2023, 06/29/2022, Additional history exists Zoster Vaccines Completed 08/13/2020, 06/11/2020 Pneumococcal Vaccine: 50+ Years Completed 06/24/2021, 06/11/2020 RSV Immunization Adult Patients Completed 04/30/2023 HIB Vaccines Aged Out No longer eligi [...] age to complete this topic Insurance MEDICARE [facility] Care Teams Bookkeeping Manager Relationship Specialty Start Date End Date La Arreaga MD [address] [place] [address], [address] [place] [address] PCP - General 04/02/22
== END 2025-03-05 10:21 | disposition home or self-care (01) ==
LOC: HO.US 10:20
PROVIDERS: PCP Internal Medicine; Visit Provider Physician Assistant Surgical
DX: I83.92 Asymptomatic varicose veins of left lower extremity (principal)
CPT/HCPCS: 93970

== ENCOUNTER → 2025-03-05 10:22 | Outpatient (BNV) | payer MEDICARE, SELFPAY | PROVIDERS: PCP Internal Medicine; Visit Provider Radiology Diagnostic Radiology | DX: I83.92 Asymptomatic varicose veins of left lower extremity (principal) | CPT/HCPCS: 93970 ==

== ENCOUNTER 2025-05-02 08:33 | Outpatient (AMB) | payer MEDICARE, SELFPAY ==
[2025-05-02 08:44] VITALS: BP 120/68; PULSE 75; RESP 19; TEMP 36.6; O2SAT 97; BMI 29.3
--- NOTE | 2025-05-02 08:44 | A.OFFPC_ITS ---
Vital Signs 05/02/25 08:44 Height 5 ft 4 in Weight 171 lb BMI 29.3 BP 120/68 Blood Pressure Location Lt brachial Position Sitting Respiration 19 Pulse 75 Pulse Source Pulse Oximeter Temp 97.9 F Temp Source Oral Pulse Oximetry (%) 97 Oxygen Delivery Method Room Air Intake Visit Reasons: 3m follow up Intake Note: Pt is here today for 3 months follow up visit. Allergies aspirin Allergy (Verified 05/02/25 08:45) Unknown ibuprofen Allergy (Verified 05/02/25 08:45) Unknown Milk Containing Products (Dairy) Allergy (Verified 05/02/25 08:45) Sneezing naproxen Allergy (Verified 05/02/25 08:45) yellow eyes skin turning blue Medication List - Last Reconciled 05/02/25 by Jacqui Mireles MD albuterol sulfate 90 mcg/actuation (Ventolin HFA) 2 puffs inhalation Q6H PRN aloe vera PO Bacillus coagulans (Probiotic (B. coagulans)) PO cetirizine (Zyrtec) 10 mg PO DAILY PRN cholecalciferol (vitamin D3) 25 mcg PO DAILY ipratropium-albuterol 20-100 mcg/actuation (Combivent Respimat) 1 puff inhalation TID levothyroxine (Levoxyl) 75 mcg PO DAILY montelukast 10 mg PO DAILY Tobacco use date assessed: 05/02/25 Fall risk assessment: No Falls in past year Last assessed Fall Risk: 05/02/25 Dental Screening Dental Screen Date: 01/31/25 HPI 3m follow up HPI Details Pt presents for follow-up. Chronic COPD is stable on Combivent inhaler and patient is established with plant operator helper at [facility]. Hypothyroidism is controlled on levothyroxine. COUNTS INCLUDE 234 BEDS AT THE [facility] Medical History (Updated 05/02/25 @ 09:21 by Jacqui Mireles MD) Osteopenia Hypothyroidism Hyperglycemia Hyperlipidemia Varicose veins of left calf COPD (chronic obstructive pulmonary disease) Carotid artery aneurysm Surgical History (Updated 05/02/25 @ 09:20 by Jacqui Mireles MD) History of colonoscopy Hx of cataract surgery Family History Father Hypertension Heart problem, Onset Age: 50 Mother Hypertension Diabetes Social History (Reviewed 05/02/25 @ 08:48 by BALDO Dennis Household Members Other:: , 3 children, artist Housing: House Patient Tobacco Use Status: Former Tobacco user (14-15 years ago) Tobacco use type: Cigarette e-Cigarette/Vaping Use: Never Used service: No Current occupational status: retired Cognitive needs: No Hearing needs: No Vision needs: No Questionnaire PHQ-9 Over the last 2 weeks, how often have you been bothered by any of the following problems? 1. Little interest or pleasure in doing things: not at all 2. Feeling down, depressed, or hopeless: not at all 3. Trouble falling or staying asleep, or sleeping too much: not at all 4. Feeling tired or having little energy: nearly every day 5. Poor appetite or overeating: not at all 6. Feeling bad about yourself - or that you are a failure or have let yourself or your family down: not at all 7. Trouble concentrating on things, such as reading the newspaper or watching television: not at all 8. Moving or speaking so slowly that other people could have noticed. Or the opposite - being so fidgety or restless that you have been moving around a lot more than usual: not at all 9. Thoughts that you would be better off or of hurting yourself in some way: not at all Total score: 3 Depression Screening Interpretation: Negative Depression Screening Done: Yes Source: Developed by Drs. Marcelino Loyd, Sasha Rojas, Mukul Cordon and colleagues, with an educational mary from [employer]. Thrive Questionnaire Date Thrive assessed: 01/31/25 I am a: Patient What is your living situation today?: I have a steady place to live Within the past 12 months, did the food you bought not last and you didn't have the money to get more?: Often true Within the past 12 months, did you worry whether your food would run out before you got money to buy more?: I choose not to answer this question Do you have trouble paying for medicines?: I choose not to answer this question Do you have trouble getting transportation to medical appointments?: I choose not to answer this question Do you have trouble paying your heating and electricity bill?: I choose not to answer this question Do you have trouble taking care of your child, family member or friend?: No Do you have trouble with day-to-day activities such as bathing, preparing meals, shopping, managing finances, etc.?: No Are you currently unemployed and looking for a job?: No Are you interested in more education?: No Please select the resources that you would like help with: None Currently or been in a relationship where the following occur: I choose not to answer THRIVE Score: 1 AUDIT C Alcohol Use Questionnaire (AUDIT-C) 1. How often do you have a drink containing alcohol?: Monthly or less 2. How many drinks containing alcohol do you have on a typical day when you are drinking?: 1 or 2 3. How often do you have six or more drinks on one occasion?: Never Total Score: 1 SILVESTRE-7 AMB Questionnaire SILVESTRE-7 Date SILVESTRE - 7 assessed: 01/31/25 Feeling nervous, anxious, or on edge: 1 = Several days Not being able to stop or control worryin = Several days Worrying too much about different things: 1 = Several days Trouble relaxin = Not at all Being so restless that it is hard to sit still: 1 = Several days Becoming easily annoyed or irritable: 1 = Several days Feeling afraid as if something awful might happen: 1 = Several days Total SILVESTRE-7 score (0-4 normal; 5-9 mild; 10-14 moderate; 15-21 severe): 6 Source: Developed by Drs. Marcelino Loyd, Sasha Rojas, Mukul Cordon and colleagues, with an educational mary from [employer]. Review of Systems Const All systems reviewed & are unremarkable except as noted in HPI and below Eyes Reports no additional complaints ENT Reports no additional complaints Card Reports no additional complaints Resp Reports no additional complaints GI Reports no additional complaints Reports no additional complaints Physical exam (Primary Care) Vital Signs: Last Vital Signs Temp 97.9 F 05/02/25 08:44 Pulse 75 05/02/25 08:44 Resp 19 05/02/25 08:44 BP 120/68 05/02/25 08:44 Pulse Ox 97 05/02/25 08:44 Oxygen Delivery Method Room Air 05/02/25 08:44 BMI result Body Mass Index 29.3 Tobacco/Smoking Status: Tobacco use Status Tobacco use date assessed 05/02/25 05/02/25 08:48 Patient Tobacco Use Status Former Tobacco user (14-15 05/02/25 08:48 years ago) Tobacco use type Cigarette 05/02/25 08:48 e-Cigarette/Vaping Use Never Used 05/02/25 08:48 PHQ-9: PHQ-9 Score PHQ-9: Total score 3 05/02/25 08:52 Depression Screening Interpretation: Negative Thrive Assessment: Date of Thrive Assessment Date Thrive assessed 01/31/25 05/02/25 08:48 Currently or been in a relationship where the following occur: I choose not to answer Const General: no acute distress HENMT Ears: hearing grossly normal bilaterally Eyes General: appearance normal, both eyes and all related structures Neck Neck: Yes supple Resp Effort & Inspection: normal respiratory effort Auscultation: clear to auscultation bilaterally Cardio Rhythm: regular rhythm Heart sounds: S1 normal heart sound present and S2 normal heart sound present Coding Level of Care Code Est Pt Level 3 (39691) Diagnoses COPD (chronic obstructive pulmonary disease) J44.9 Hypothyroidism E03.9 Assessment & Plan Assessment & Plan (1) COPD (chronic obstructive pulmonary disease): Comment: F/U with pulmonology [facility], quitted smoking 15 yrs, annual CT at [facility] Code(s): J44.9 - Chronic obstructive pulmonary disease, unspecified Category: Medical Plan: Continue Combivent follow-up with pulmonology (2) Hypothyroidism: Code(s): E03.9 - Hypothyroidism, unspecified Category: Medical Plan: Continue levothyroxine, p t will return for physical in 1 year with a fasting labs before Orders: Orders Complete Blood Count Auto Diff 1 Year E03.9 - Hypothyroidism, unspecified, E55.9 - Vitamin D deficiency, unspecified, M85.80 - Other specified disorders of bone density and structure, unspecified site TSH reflex Free T4 1 Year E03.9 - Hypothyroidism, unspecified, E55.9 - Vitamin D deficiency, unspecified, M85.80 - Other specified disorders of bone density and structure, unspecified site Comprehensive [place]. Panel Fast 1 Year E03.9 - Hypothyroidism, unspecified, E55.9 - Vitamin D deficiency, unspecified, M85.80 - Other specified disorders of bone density and structure, unspecified site Lipid Panel 1 Year E03.9 - Hypothyroidism, unspecified, E55.9 - Vitamin D defi ciency, unspecified, M85.80 - Other specified disorders of bone density and structure, unspecified site Vitamin D 25-OH Total 1 Year E03.9 - Hypothyroidism, unspecified, E55.9 - Vitamin D deficiency, unspecified, M85.80 - Other specified disorders of bone density and structure, unspecified site
--- OUTSIDE RECORDS SUMMARY | 2025-05-02 09:47 | XMS_ITS | Clinical Summary ---
Author Organization [facility] Address [address] [place] [address] Care Team Providers Care Drill Setup Operator Name Role Phone La Arreaga Primary Care Provider [phone] Allergies Active Allergy Reactions Criticality Noted Date [...] of leg with pain 10/01/2012 Lumbago 10/01/2012 Encounters Date Type Department Care Team Description 04/17/2025 11:30 AM EDT Follow-Up [facility] [address] [place] [address] Danial Meade MD Cerebral arterial aneurysm (HCC) (Primary Dx) 04/17/2025 10:36 AM EDT - 04/17/2025 11:59 PM EDT Hospital Encounter [address] [address] Cerebral aneurysm (HCC) Discharge Disposition: Home or Self Care () 03/14/2025 Orders Only [facility] Interventional Radiology [address] [place] [address] Rikki Ugalde DO 03/14/2025 Orders Only [facility] [address] [place] [address] Virgil Benedict PA Cerebral aneurysm (HCC) (Primary Dx) 03/13/2025 Telephone [facility] [address] [place] [address] Danial Meade MD from Last 3 Months Immunizations Immunization Administration Dates Next Due Tetanus [...] Sign Reading Time Taken Comments Blood Pressure 113/75 04/17/2025 11:39 AM EDT Pulse 74 04/17/2025 11:39 AM EDT Temperature 36.3 C (97.4 F) 12/24/2014 9:02 AM EDT Respiratory Rate 18 04/17/2025 11:39 AM EDT Oxygen Saturation 95% 04/17/2025 11:39 AM EDT Inhaled Oxygen Concentration - - [...] (2 - Td or Tdap) 02/28/2024 02/27/2014 Alcohol/Substance Use Screening 08/16/2024 Depression Screening and Follow-Up 08/16/2024 Health Care Proxy Review 08/16/2024 Social Drivers of Health Annual Screening 08/16/2024 COVID-19 Vaccine ( season) 2025 05/22/2024, 05/24/2023, 01/05/2022, Additional history exists Influenza Vaccine (#1) 2025 , 05/24/2023, 06/29/2022, Additional history exists Zoster Vaccines Completed 08/13/2020, 06/11/2020 Pneumococcal Vaccine: 50+ Years Completed 06/24/2021, 06/11/2020 RSV Vaccine (60+ years old and patients) Completed 04/30/2023 Hepatitis B Vaccines Aged Out No long er eligible based on patient's age to complete this topic Medical Devices Implanted Type Area [employer] Device Identifier Shelf Expiration Date Model / Serial / Lot Device Closure Vascular Plug 8fr Angio-Seal Vip - [id number] Implanted:Qty: 1 on 04/12/2024 at [facility] [employer] 12/05/2024 [id number] / / Procedures * Due to [place] SeeOn law, this organization might not be sharing negative HIV tests. Procedure Name Priority Date/Time Associated Diagnosis Comments CT ANGIOGRAM HEAD AND NECK W CONTRAST Routine 04/17/2025 10:57 AM EDT Cerebral aneurysm (HCC) OCCULT BLOOD, FECAL (FIT), OUTSIDE LAB Routine 10/11/2012 12:00 AM EST from Last 3 Months or Most Recently Relevant to Health Maintenance Results * Due to [place] SeeOn law, this organization might not be sharing negative HIV tests. * CT Angiogram Head & Neck with Contrast (04/17/2025 10:57 AM EDT) Anatomical Region Laterality Modality Head and Neck Computed Tomogra phy 04/17/2025 11:5 7 AM EDT Impressions 04/17/2025 10:41 PM EDT Stable 3mm outpouching along the undersurface of the left distal intracranial ICA, characterized as anterior choroidal artery infundibulum at the preceding catheter angiography. Similar appearance of the left inferior orbital rim fracture transgressing through the infraorbital foramen. One of the surgical screws also appears to traverse the left infraorbital foramen as well. I, Josue Pinzon, have reviewed the examination and concur with the findings as reported or so edited. Trainee: Richard Landers If this radiology report contains a blank impression section, it is an incomplete radiology report. Please contact the interpreting radiologist or applicable radiology division as soon as possible to obtain the completed interpretation. Workstation ID: [id number] Narrative 04/17/2025 10:41 PM EDT EXAMINATION: CTA of head and neck with contrast TECHNIQUE: CT angiogram of head and neck following intravenous administration of standard dose of Omnipaque. 3-D maximum intensity projection and volume rendered images were created. Degree of stenosis estimated using NASCET criteria. Carotid stenosis Reference: Mild = <50% stenosis. Moderate = 50-69% stenosis. Severe = 70-89% stenosis. Hairline/critical = 90-99% stenosis. Occluded = 100% stenosis. CLINICAL INFORMATION: Traumatic brain injury, follow-up for vascular. COMPARISON: CTA 04/02/2024 and cerebral angiography 04/12/2024.. FINDINGS: Redemonstrated small 3 mm outpouching from the undersurface of the left distal intracranial ICA, characterized as anterior choroidal artery infundibulum at prior catheter angiography. Conventional arterial branching of the great vessels from the aortic arch with minimal atherosclerotic plaques in the origin of the left subclavian and innominate arteries without hemodynamically significant stenosis. Minimal atherosclerotic calcification of the proximal cervical left ICA and left carotid siphon without hemodynamically significant stenosis. Bilateral common carotid arteries, right internal carotid artery, bilateral ACAs, anterior communicating artery and bilateral MCAs are unremarkable. right TRAFFIC WORKER. Bilateral vertebral arteries, basilar artery and posterior cerebral arteries are unremarkable. No new outpouching, dissection, occlusion or hemodynamically significant stenosis identified. Degenerative cervical spondylosis, most prominent at C5-C6 causing bilateral, right greater than left, neural foraminal narrowing. Mild anterolisthesis at T1-T2. Resulting Agency Comment [id number] Procedure Note Josue Pinzon MD - 04/17/2025 EXAMINATION: CTA of head and neck with contrast TECHNIQUE: CT angiogram of head and neck following intravenous administration ofstandard dose of Omnipaque. 3-D maximum intensity projection and volumerendered images were created. Degree of stenosis estimated using NASCET criteria. Carotid stenosis Reference: Mild = <50% stenosis. Moderate = 50-69% stenosis. Severe = 70-89% stenosis. Hairline/critical = 90-99% stenosis. Occluded = 100% stenosis. CLINICAL INFORMATION: Traumatic brain injury, follow-up for vascular. COMPARISON: CTA 04/02/2024 and cerebral angiography 04/12/2024.. FINDINGS: Redemonstrated small 3 mm outpouching from the undersurface of the leftdistal intracranial ICA, characterized as anterior choroidal arteryinfundibulum at prior catheter angiography. Conventional arterial branching of the great vessels from the aortic archwith minimal atherosclerotic plaques in the origin of the left subclavianand innominate arteries without hemodynamically significant stenosis.Minimal atherosclerotic calcification of the proximal cervical left ICAand left carotid siphon without hemodynamically significant stenosis.Bilateral common carotid arteries, right internal carotid artery,bilateral ACAs, anterior communicating artery and bilateral MCAs areunremarkable. right TRAFFIC WORKER. Bilateral vertebral arteries, basilar artery and posterior cerebralarteries are unremarkable. No new outpouching, dissection, occlusion orhemodynamically significant stenosis identified. Degenerative cervical spondylosis, most prominent at C5-C6 causingbilateral, right greater than left, neural foraminal narrowing. Mildanterolisthesis at T1-T2. IMPRESSION: Stable 3mm outpouching along the undersurface of the left distalintracranial ICA, characterized as anterior choroidal artery infundibulumat the preceding catheter angiography. Similar appearance of the left inferior orbital rim fracture transgressingthrough the infraorbital foramen. One of the surgical screws also appearsto traverse the left infraorbital foramen as well. I, Josue Pinzon, have reviewed the examination and concur with the findingsas reported or so edited. Trainee: Richard Landers If this radiology report contains a blank impression section, it is anincomplete radiology report. Please contact the interpreting radiologistor applicable radiology division as soon as possible to obtain thecompleted interpretation. Workstation ID: [id number] Danial Meade MD IMG CT PROCEDURES Final Result * Occult Blood, Fecal (FIT), Outside Lab (10/11/2012 12:00 AM EST) Occult Blood, Stool #1 negative [facility] 10/11/2012 us Historical Conversion Provider LAB BODY FLUIDS A ND STOOLS ORDERABLES Final Result [facility] from Last 3 Months or Most Recently Relevant to Health Maintenance Insurance [facility]ARE [facility] Care Teams Drill Setup Operator Relationship Specialty Start Date End Date La Arreaga [address] [place] [address] PCP - General Family Medicine 04/07/24
--- OUTSIDE RECORDS SUMMARY | 2025-05-02 09:47 | XMS_ITS | Encounter Summary ---
Author Organization [facility] Address [address] [place] [address] Care Team Providers Care Chef Instructor Name Role Phone La Arreaga Primary Care Provider [phone] Encounter Details Date Type Department Care Team (Late st Contact Info) Description 04/12/2024 Orders Only [facility] Interventional Radiology [address] [place] [phone] Dayne Sesay MD [address] [place] [phone] Social History Tobacco Use Types Packs/Day Years Used Date Smoking Tobacco: Former Comments:: Comments Unknown Sex and Gender Information Value Date Recorded Sex Assigned at Female 04/07/2024 9:09 AM EDT Legal Sex Female 12:13 AM EDT Gender Identity Not on file Sexual Orientation Not on file documented as of this encounter Plan of Treatment Not on file documented as of this encounter Visit Diagnoses Not on filedocumented in this encounter Care Teams Chef Instructor Relationship Specialty Start Date End Date Whitley La Caitie [address] [place] [address] PCP - General Family Medicine 04/07/24 documented as of this encounter
--- OUTSIDE RECORDS SUMMARY | 2025-05-02 09:47 | XMS_ITS | Clinical Summary ---
Author Organization [facility] Address [address] [place] [address] Phone Care Team Providers Care Senior Program Planner Name Role Phone La Arreaga MD Primary Care Provider [phone] Allergies Active Allergy Reactions Criticality Noted Date [...] 06/14/2023 COPD (chronic obstructive pu lmonary disease) ([facility] V24, [facility] V28) 06/14/2023 Erythema migrans (Lyme disease) 06/14/2023 Hypothyroidism 06/14/2023 Lumbago 06/14/2023 Lumbar spondylosis 06/14/2023 Osteopenia 06/14/2023 Vitamin B12 deficiency 06/14/2023 Social History Tobacco Use Types Packs/Day Years [...] 9:45 AM EST Office Visit Pulmonolgy - [place] [address] [facility] [address] [place] [phone] Xochilt Duarte MD [address] [facility] [address] [place] [address] Health Maintenance Due Date Last Done Comments Breast Cancer Screening 1955 Colorectal Cancer Screening: Colonoscopy 07/19/2022 Falls Risk Assessment 07/19/2022 Hepatitis C Screening 07/19/2022 Medicare Annual Wellness Visit 07/19/2022 Osteoporosis Screening (Bone Density Screening) 07/19/2022 Social Influencers of Health Screening 07/19/2022 DTaP,Tdap,and Td Vaccines (2 - Td or Tdap) 02/28/2024 02/27/2014 Depression Screening 08/16/2024 COVID-19 Vaccine ( season) 2025 [...] age to complete this topic Insurance MEDICARE [facility] Care Teams Senior Program Planner Relationship Specialty Start Date End Date La Arreaga MD [address] [place] [address], [address] [place] [address] PCP - General 04/02/22
--- OUTSIDE RECORDS SUMMARY | 2025-05-02 09:47 | XMS_ITS | Patient Health Record ---
Author Organization [facility] Address [address] [facility] [address] [place] [phone] Care Team Providers Care Toxicology Teacher Name Role Phone Sandro Graves Primary Care Provider Miguel Angel Montes Jr Unavailable Reason For Referral No Information Plan Of Treatment No Information Insurance Providers Payer Name Payer Address Payer Phone Subscriber Number Group Number Insured Name Patient Relationship to Insured Coverage Start Date Coverage End Date [facility] [employer] [facility] [address] [place] [address] [phone] [id number] BONNY LANGE Self - patient is the insured
--- OUTSIDE RECORDS SUMMARY | 2025-05-02 09:47 | XMS_ITS | Encounter Summary ---
Author Organization [facility] Address [address] [place] [address] Care Team Providers Care Picker And Sorter Load And Unload Name Role Phone La Arreaga Primary Care Provider [phone] Encounter Details Date Type Department Care Team (Late st Contact Info) Description 03/14/2025 Orders Only [facility] Interventional Radiology [address] [place] [address] Rikki Ugalde DO [address] [place] [address] Social History Tobacco Use Types Packs/Day Years [...] on filedocumented in this encounter Care Teams Picker And Sorter Load And Unload Relationship Specialty Start Date End Date La Arreaga [address] [place] [id number] PCP - General Family Medicine 04/07/24 documented as of this encounter
== END 2025-05-02 09:13 | disposition home or self-care (01) ==
LOC: HO.HMCC 08:34
PROVIDERS: PCP Internal Medicine; Visit Provider Internal Medicine
DX: J44.9 Chronic obstructive pulmonary disease, unspecified (principal); E03.9 Hypothyroidism, unspecified

== ENCOUNTER → 2025-05-02 08:33 | Outpatient (BNVA) | payer MEDICARE, SELFPAY | PROVIDERS: PCP Internal Medicine; Visit Provider Internal Medicine | DX: I83.92 Asymptomatic varicose veins of left lower extremity (principal); J44.9 Chronic obstructive pulmonary disease, unspecified; E03.9 Hypothyroidism, unspecified; E55.9 Vitamin D deficiency, unspecified; Z79.899 Other long term (current) drug therapy | CPT/HCPCS: 96127; 99212 ==